=== PATIENT | male | born 2000 | race Caucasian/White ===

== ENCOUNTER 2023-08-05 09:40 | Emergency (ER) | payer OTHER, BC, SELFPAY ==
[2023-08-05 09:51] VITALS: BP 160/80; PULSE 102; RESP 18; TEMP 36.6; O2SAT 99; BMI 31.6
--- NOTE | 2023-08-05 09:53 | XR_ITS ---
Patient: DANIELA JEAN Facility:?[facility] Patient ID:?[id number] Site Patient ID:?[id number]. Site :?[id number] Study:?XRay-Extremity Left FOREARM 2 VIEWS-08/05/2023 10:11:58 AM Ordering Physician:TREVOR Final Report: INDICATION: Concern for foreign body. TECHNIQUE: Two-view study left forearm. FINDINGS: A 3.3 mm radiopaque foreign body identified in the subcutaneous soft tissues anterior left elbow. No fracture or dislocation. Dictated by Maliha Tadeo MD @ 08/05/2023 10:38:24 AM Signed by:?Maliha Tadeo MD @08/05/2023 10:38:24 AM (Electronic Signature)
--- NOTE | 2023-08-05 11:04 | ED_ITS ---
HPI - General Adult General Chief complaint: Extremity Pain/Injury, Upper Stated complaint: Metal shards embedded in L arm Time Seen by Provider: 08/05/23 10:22 History of Present Illness HPI narrative: This 23-year-old male was at work on a motor vehicle using a hammer to try to release something that was stuck. There was a shard of metal that dislodged and penetrated into his left antecubital fossa area. He states that he used a magnet at work and saw that it caused his skin to tent up. He does not report any other injury. He is uncertain of his tetanus status. Related Data Home Medications Medication Instructions Recorded Confirmed No Known Home Medications 08/05/23 08/05/23 Allergies Allergy/AdvReac Type Severity Reaction Status Date / Time No Known Drug Allergies Allergy Verified 08/05/23 09:51 Review of Systems Status of ROS: Reports: 10 or more systems reviewed and unremarkable except as noted in History and below Narrative: Constitutional: No fevers, no weight gain or loss. Eyes: No discharge. No vision changes. HENT: No congestion, no sore throat, no ear pain. Cardiovascular: No chest pain, no palpitations. Respiratory: No shortness of breath, no wheezes, no cough. Gastrointestinal: No abdominal pain, no vomiting, no diarrhea. Genitourinary: No dysuria, no hematuria. Musculoskeletal: Normal range of motion. Skin: No rashes, no pruritis. Neurological: No dizziness, weakness, sensory change, speech change. Endo/Heme/Allergies: No bruising or bleeding. No polydipsia. Pysch: no suicidality, no anxiety, no insomnia. All other systems reviewed and are negative. Exam Narrative: Exam Narrative: Constitutional: Well-developed, well-nourished, no acute distress. HEENT: Normocephalic, atraumatic. Neck: Normal range of motion. Nontender. Supple. Heart: Regular. No murmurs. Normal rate. Intact distal pulses. Lungs: Clear to auscultation. No chest discomfort. No wheezes, rhonchi, or rales. Abdomen: Normal bowel sounds. Nontender. No rebound tenderness. Genitalia: Deferred. Back: No midline tenderness. Normal range of motion. Extremities: Normal range of motion. Small puncture wound in the antecubital fo ssa area of the left upper extremity. Skin: Intact. No rash. Warm. No erythema or pallor. Neurologic: No altered sensation. No weakness. Alert and oriented. Psychiatric: No suicidality. No anxiety or depression. No insomnia. Nursing notes and vitals signs are reviewed. Const: Vital Signs, click to edit/add: Vital Signs - 24 hr 08/05/23 09:51 Temperature 98 F Pulse Rate [Pulse Oximeter] 102 H Respiratory Rate 18 Blood Pressure [Ri ght Upper Arm] 160/80 H Pulse Oximetry 99 Course Vital Signs Vital signs: Initial Vital Signs Temperature 98 F 08/05/23 09:51 Temperature Source Temporal Artery Scan 08/05/23 09:51 Pulse Rate 102 H 08/05/23 09:51 Respiratory Rate 18 08/05/23 09:51 Blood Pressure 160/80 H 08/05/23 09:51 Blood Pressure Mean 106 H 08/05/23 09:51 Pulse Oximetry 99 08/05/23 09:51 Vital Signs Temperature 98 F 08/05/23 09:51 Pulse Rate 102 H 08/05/23 09:51 Respiratory Rate 18 08/05/23 09:51 Blood Pressure 160/80 H 08/05/23 09:51 Pulse Oximetry 99 08/05/23 09:51 Temperature 98 F 08/05/23 09:51 Pulse Rate 102 H 08/05/23 09:51 Respiratory Rate 18 08/05/23 09:51 Blood Pressure 160/80 H 08/05/23 09:51 Pulse Oximetry 99 08/05/23 09:51 Medical Decision Making MDM Narrative Medical decision making narrative: This patient comes in with foreign object in his left upper extremity as described above. X-ray imaging does show a small metal object in the soft tissue at the level of his elbow joint. I did attempt to remove the foreign object by 1st cleansing the wound area and injecting 1% lidocaine with epinephrine. I did use a small tool to attempt to grab the foreign object. I was unsuccessful and unable to contact anything that appeared to be metal. I did use the doughnut magnet from the cardiology cart to attempt to isolate the foreign object but there was no response when applying the magnet. The patient may have spontaneously dislodge the foreign object. I stated that IA could open the wound further or look with further imaging but the patient declined. He feels okay with leaving it in there if there is something yet remaining. The patient is due for a tetanus vaccination and this was administered here. Discharge Plan Discharge Clinical Impression: Foreign body (FB) in soft tissue Patient Disposition: Home, Self-Care Condition: Stable Additional Instructions: Continue current plans. Use [id number] medicines as needed and directed. Follow up with MD or return if worsening. Prescriptions: No Action No Known Home Medications Follow Up/Referrals: Provider,Not a Local [Primary Care Provider] - Stand Alone Forms: [employer] Info Instructions
[2023-08-05] MEDS: TETANUS/DIPHTH/PERTUSSIS 0.5 ML SYRINGE IM (11:24)
== END 2023-08-05 11:25 | disposition home or self-care (01) ==
PROVIDERS: Emergency Provider Emergency Medicine Emergency Medical Services
DX: S41.142A Puncture wound with foreign body of left upper arm, initial encounter (principal); W22.8XXA Striking against or struck by other objects, initial encounter; Y99.0 Civilian activity done for income or pay; Z23 Encounter for immunization
CPT/HCPCS: 73090; 90471; 90715; 99284